=== PATIENT | male | born 1965 | race Caucasian/White ===

== ENCOUNTER → 2023-10-25 | Outpatient (CLI) | payer OTHER, SELFPAY | LOC: M CARPUL 10:00 | PROVIDERS: ATTEND Internal Medicine | DX: R60.0 Localized edema (principal); I08.8 Other rheumatic multiple valve diseases ==

== ENCOUNTER → 2024-06-06 | Outpatient (CLI) | payer OTHER | LOC: M RAD 13:13 | PROVIDERS: ATTEND Internal Medicine | DX: Z72.0 Tobacco use (principal); J94.8 Other specified pleural conditions ==